=== PATIENT | female | born 1950 | race Caucasian/White ===

== ENCOUNTER → 2018-08-17 | Outpatient (CLI) | payer OTHER ==
[~2018-08-17] MED LIST: ALEVE220 MG PO; AMLODIPINE BESYL5 MG; ASPIR 8181 MG PO; CENTRUM SILVER1 EAC4 PO; CO Q-1030 MG PO; CORAL CALCIUM1 EACH PO; COREG25 MG PO; COZAAR 25 MG TA25 M1 PO; CRESTOR10 MG; ELIQUIS5 MG PO; HYDROCHLOROTHIA25 M2 PO; IMDUR 60 MG TAB60 M1 PO; IRON325 PO; KOMBIGLYZE XR1 EAC2; LASIX 20 MG TAB20 MG PO; LIPITOR 20 MG T20 M1 PO; LOPRESSOR50; LOSARTAN-HCTZ1 EAC1; MELATONIN3 MG PO; NEURONTIN 300300 M1 PO; NORVASC5 MG PO; OMEGA-31000 M1 PO; PLAVIX 75 MG TA75 M1; PLAVIX 75 MG TA75 M1 PO; RANEXA500 MG PO; VITAMIN B-12500 MCG PO; WELCHOL 625 MG625 M1 PO
[2018-08-17 13:18] VITALS: BP 142/62
[2018-08-17 14:45] VITALS: BP 137/64
--- NOTE | 2018-08-17 14:56 | NUR ---
ARRIVED AMBULATORY. MADE SELF COMFORTABLE IN RELCNER. IV STARTED WITHOUT DIFFICULTY. IRON INFUSION COMPLETED AND TOELRATED WELL. DENIES ADVERSE REACTION. DISCHARGE REVIEWED DENEIS QUESTIONS OR NEEDS.
== END ==
LOC: M.INFUS 13:00
DX: D50.9 Iron deficiency anemia, unspecified (principal); I48.91 Unspecified atrial fibrillation; I25.10 Atherosclerotic heart disease of native coronary artery without angina pectoris; I73.9 Peripheral vascular disease, unspecified; E11.42 Type 2 diabetes mellitus with diabetic polyneuropathy; K21.9 Gastro-esophageal reflux disease without esophagitis; I10 Essential (primary) hypertension; M19.90 Unspecified osteoarthritis, unspecified site; E66.9 Obesity, unspecified; E78.2 Mixed hyperlipidemia; Z95.0 Presence of cardiac pacemaker; Z79.01 Long term (current) use of anticoagulants

== ENCOUNTER → 2018-08-20 | Outpatient (CLI) | payer OTHER ==
[2018-08-20 13:08] VITALS: BP 138/78
--- NOTE | 2018-08-20 14:36 | NUR ---
DENIES ADVERSE REACTION TO PRIOR INFUSION OF SAME. INFUSION COMPLETED AND TOLERATED WELL.
== END ==
LOC: M.INFUS 02:23
DX: D50.9 Iron deficiency anemia, unspecified (principal); I25.10 Atherosclerotic heart disease of native coronary artery without angina pectoris; E11.42 Type 2 diabetes mellitus with diabetic polyneuropathy; I48.91 Unspecified atrial fibrillation; I10 Essential (primary) hypertension; E11.51 Type 2 diabetes mellitus with diabetic peripheral angiopathy without gangrene; K21.9 Gastro-esophageal reflux disease without esophagitis; M19.90 Unspecified osteoarthritis, unspecified site; E78.2 Mixed hyperlipidemia; E66.9 Obesity, unspecified; Z99.11 Dependence on respirator [ventilator] status; Z79.01 Long term (current) use of anticoagulants; Z95.5 Presence of coronary angioplasty implant and graft; Z90.710 Acquired absence of both cervix and uterus; Z87.891 Personal history of nicotine dependence

== ENCOUNTER → 2018-08-23 | Outpatient (CLI) | payer OTHER | LOC: M.INFUS 04:57 | DX: D50.9 Iron deficiency anemia, unspecified (principal); I25.10 Atherosclerotic heart disease of native coronary artery without angina pectoris; E11.42 Type 2 diabetes mellitus with diabetic polyneuropathy; I48.91 Unspecified atrial fibrillation; I10 Essential (primary) hypertension; K21.9 Gastro-esophageal reflux disease without esophagitis; E11.51 Type 2 diabetes mellitus with diabetic peripheral angiopathy without gangrene; M19.90 Unspecified osteoarthritis, unspecified site; E78.2 Mixed hyperlipidemia; E66.9 Obesity, unspecified; Z99.11 Dependence on respirator [ventilator] status; Z79.01 Long term (current) use of anticoagulants; Z95.5 Presence of coronary angioplasty implant and graft; Z90.710 Acquired absence of both cervix and uterus; Z87.891 Personal history of nicotine dependence ==

== ENCOUNTER → 2018-08-26 | Outpatient (CLI) | payer OTHER | LOC: M.INFUS 13:00 | DX: D50.9 Iron deficiency anemia, unspecified (principal) ==

== ENCOUNTER → 2018-08-29 | Outpatient (CLI) | payer OTHER ==
[2018-08-29 12:55] VITALS: BP 145/61
[2018-08-29 14:30] VITALS: BP 140/75
--- NOTE | 2018-08-29 15:00 | NUR ---
INFUSION COMPLETED AND TOELRATED WELL. REFUSED POST INFUSION LABS STATING ALREADY HAD THEM DONE AT DOCTOR' OFFICE EARLIER TODAY. DENIES NEEDS.
== END ==
LOC: M.INFUS 03:39
DX: D50.9 Iron deficiency anemia, unspecified (principal); I25.10 Atherosclerotic heart disease of native coronary artery without angina pectoris; E11.42 Type 2 diabetes mellitus with diabetic polyneuropathy; I48.91 Unspecified atrial fibrillation; I10 Essential (primary) hypertension; K21.9 Gastro-esophageal reflux disease without esophagitis; E11.51 Type 2 diabetes mellitus with diabetic peripheral angiopathy without gangrene; M19.90 Unspecified osteoarthritis, unspecified site; E78.2 Mixed hyperlipidemia; E66.9 Obesity, unspecified; Z99.11 Dependence on respirator [ventilator] status; Z95.5 Presence of coronary angioplasty implant and graft; Z90.710 Acquired absence of both cervix and uterus; Z87.891 Personal history of nicotine dependence

== ENCOUNTER 2018-08-30 09:59 | Inpatient (IN) | payer OTHER ==
[~2018-08-30] VITALS: Ht 170.2 cm; Wt 90.9 kg
--- NOTE | ~2018-08-30 | CON ---
[address] [address] CONSULTATION Name: NIKOLAI RED Room: [address] ADM IN M.R.#: [id number] Admission: 08/30/18 Attend Phys: Rubén Cavazos MD Discharge: Date of : 52 Report #: [id number] THIS REPORT FOR: //name// CC: Emi Jones DO Rubén Cavazos DATE OF SERVICE: 08/31/2018 CARDIOLOGY CONSULTATION HISTORY OF PRESENT ILLNESS: The patient is a 68-year-old white female, who I was asked to see in the hospital today because of her history of coronary artery disease. Unfortunately, not many of her old records are available. She has an extensive and complicated past medical history. She had a Biotronik pacemaker inserted in 12/2016 at [facility] by Dr. Nolan. According to the patient, the pacemaker is MRI compatible. She states at the time, she was short of breath and was noted to have a heart rate in the 50s. She continues to have the Biotronik pacemaker checked with a transmitter from home. She currently is followed by Dr. Gutierrez, a retail shift leader at [facility]. She apparently has a history of AFib and has had 2 radiofrequency ablations in the past at [facility]. She has been chronically anticoagulated with Eliquis. She also had a coronary stent placed at [facility] about 6 years ago. She is not very active at this time. She does have a history of anemia. She has undergone previous EGD and colonoscopy showing no significant bleeding. She was placed on iron supplements. Recently in cardiac rehab, she developed jaw pain with exertion. She apparently saw her retail shift leader, who is planning another heart catheterization. Recently, she notes occasional lightheadedness, but denied any shortness of breath. She saw her primary care physician earlier this week and had blood drawn. She is noted to be severely anemic and was told to come to the hospital yesterday and was admitted. She currently is receiving a blood transfusion. She denies any bleeding anywhere. She has had no recent fever or syncope. PAST MEDICAL HISTORY: Otherwise, she has had previous cholecystectomy and hysterectomy. She apparently has had 2 carotid endarterectomies on the right side of her neck at [facility]. She eventually apparently had a carotid stent placed at [facility]. CURRENT MEDICATIONS: Consist of the following list: She is on amlodipine 5 mg a day, Eliquis 5 mg twice a day, aspirin 81 mg a day, Lipitor 20 mg a day, carvedilol 25 mg twice a day, Plavix 75 mg a day, Welchol every day, iron supplements, Lasix daily, Neurontin, hydrochlorothiazide, Imdur 60 mg a day, losartan 25 mg a day, metoprolol, hydrochlorothiazide, Cozaar, and metoprolol tartrate. She has PREVIOUS [place] [address] CONSULTATION Name: NIKOLAI RED Room: [address] IN M.R.#: [id number] Admission: 08/30/18 Attend Phys: Rubén Cavazos MD Discharge: Date of : 52 Report #: [id number] FAMILY HISTORY: Her father had heart disease. SOCIAL HISTORY: She is . She and her live in [place]. She quit smoking 9 years ago. No alcohol abuse. REVIEW OF SYSTEMS: She has had no history of stroke, asthma, liver disease, kidney disease, cancer, or psychiatric illness. She does wear glasses. 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 No psychiatric illness. No chronic skin condition. PHYSICAL EXAMINATION: GENERAL: Revealed a middle-aged female lying in bed. She appeared in no distress. VITAL SIGNS: She has blood pressure of 130/60 and pulse 70. She is afebrile. HEENT: She is anicteric. Conjunctivae pale. Mucous members appear dry. NECK: Veins do not appear distended. CHEST: Clear to auscultation. CARDIAC: Regular rate and rhythm. ABDOMEN: Soft. EXTREMITIES: Had no edema. Dorsalis pedis pulse 2+ bilaterally. SKIN: Cool and dry. NEUROLOGIC: Nonfocal. Her ECG shows an atrial paced rhythm. Her workup so far in the hospital included a chest x-ray done in the Emergency Room yesterday that showed normal heart size and clear lung molina. LABORATORY DATA: Sodium 142, creatinine 1.0, glucose 121. Liver function studies were normal. TSH 2.4. Iron saturation 8%, ferritin 142. B12 of 490. White blood cell count 5.1, hemoglobin was initially 6.6, hematocrit 22.2, MCV 78. IMPRESSION AND RECOMMENDATIONS: 1. Anemia. No history of bleeding. Reason unclear. The patient is scheduled to see a business law teacher. Since the patient is having easily reproduced angina, I would not proceed with endoscopy at this time. 2. Coronary artery disease. Previous stent. The patient has infrequent angina. I would consider repeat cardiac catheterization once the patient is stable and felt to be a candidate for antiplatelet therapy. 3. Sick sinus syndrome. The patient is atrial paced with an MRI compatible pacemaker. 4. Hypertension. The patient is on a beta-dc and calcium dc and ELMIRA inhibitor. 5. Hyperlipidemia. The patient is on a statin drug. 6. Previous tobacco abuse. [facility] [address] [place] [address] CONSULTATION Name: NIKOLAI RED Room: [address] IN M.R.#: [id number] Admission: 08/30/18 Attend Phys: Rubén Cavazos MD Discharge: Date of : 52 Report #: [id number] 7. Evidence of previous optic stroke. 8. History of atrial fibrillation. The patient has had 2 previous ablations. Because of anemia, I would hold Eliquis at this time. 9. Previous carotid endarterectomy and carotid stent. 10. Diabetes. By: [id number] [id number] Michelle MD, FACC /nt
--- NOTE | ~2018-08-30 | CON ---
[address] [address] CONSULTATION Name: NIKOLAI RED Room: [address] IN M.R.#: [id number] Admission: 08/30/18 Attend Phys: Rubén Cavazos MD Discharge: Date of : 52 Report #: [id number] THIS REPORT FOR: //name// CC: SHANON CUETO DO Emi Cavazos DICTATED BY: Vivi Peter [facility] DATE OF SERVICE: 08/31/2018 Please note at the time of this dictation, the patient was seen and physically examined by myself. REASON FOR CONSULTATION: Symptomatic iron deficiency anemia. HISTORY OF PRESENT ILLNESS: This 68-year-old female who presented to her PCP's office for some blood work due to complaints of dizziness, increased fatigue and shortness of air with exertion. She was found to have iron deficiency anemia last month and she has received 5 IV iron infusions with her last one being on 08/29/2018 of this month. The patient did have a colonoscopy done back in 02/2018 of this year and that was normal. She did see Dr. Kwan in the office on 08/13/2018. However, because of her pacemaker, she is unable to have a small bowel capsule. She was being evaluated by Cardiology for her angina and she is needing a stent and she is on Eliquis due to her atrial fibrillation. However, with this anemia she has been off of that and Cardiology is waiting for GI evaluation, but clearance needs to be obtained and did not feel comfortable doing an EGD. The patient did have an EGD back in 2014 that was normal. The patient denies any nausea or vomiting or any change in her bowel habits. She goes daily, soft and formed with no evidence of any melena or bright red blood. She denies any abdominal pain. ALLERGIES: MUSCLE RELAXANTS, CODEINE, AND SUCCINYLCHOLINE. MEDICATIONS: From home include Plavix, Lopressor, Compazine, Crestor, Norvasc, Eliquis, aspirin, Lipitor, Coreg, CoQ10, Welchol, calcium, vitamin B12, iron, Lasix, Neurontin, hydrochlorothiazide, Imdur, Cozaar, melatonin, Centrum, omega 3, and Ranexa. PAST MEDICAL HISTORY: Hypertension, type 2 diabetes, pacemaker, cardiac stents. PAST SURGICAL HISTORY: Hysterectomy, pacemaker, 2 endarterectomies with stents and cardiac stents. FAMILY HISTORY: Mother, breast [place] [address] CONSULTATION Name: NIKOLAI RED Room: [address] IN [facility].#: [id number] Admission: 08/30/18 Attend Phys: Rubén Cavazos MD Discharge: Date of : 52 Report #: [id number] SOCIAL HISTORY: Denies any alcohol, tobacco or illegal drug use. REVIEW OF SYSTEMS: Twelve-point review of systems is essentially negative except what is mentioned in the HPI. PHYSICAL EXAMINATION: VITAL SIGNS: Temperature 36.5, pulse 71, respirations 16, blood pressure 138/58. HEART: Regular rate and rhythm. LUNGS: Clear. ABDOMEN: Soft, positive bowel sounds in all 4 quadrants with no masses or tenderness noted. LABORATORY DATA: Hemoglobin on admission was 6.8. She got 1 unit was up to 7.2 and she is back down to 6.8 this morning. In getting a second unit, white count is 5.1, platelets 199. GFR is 55. Her MCV is 78.7. Iron is 29, TIBC is 375 and percentage sat is 8, and B12 is 490. Chest x-ray clear. IMPRESSION: 1. Acute anemia. 2. History of symptomatic iron deficiency anemia with shortness of air and fatigue. 3. Anticoagulant therapy, Eliquis, Plavix and aspirin. Eliquis is currently on hold. 4. History of coronary artery disease, needing further stents and her shed boss is Dr. Pierce. 5. Family history of breast and ovarian cancer. PLAN: 1. Obtain Cardiology consult. 2. Clear liquids. 3. We will obtain records from Dr. Pierce's office. 4. We will keep hemoglobin greater than 7 and transfuse as needed. 5. Eliquis is on hold. Plavix and aspirin still on board. 6. Further recommendations to be made once the above have been noted. Thank you for allowing us to participate in this patient's care. Please do not hesitate to call with any questions in regard to this consult. By: [id number] Paniagua MD /nt
[~2018-08-30 09:59] MED LIST changes: -ALEVE220 MG PO; -ASPIR 8181 MG PO; -CENTRUM SILVER1 EAC4 PO; -CO Q-1030 MG PO; -CORAL CALCIUM1 EACH PO; -COREG25 MG PO; -COZAAR 25 MG TA25 M1 PO; -ELIQUIS5 MG PO; -HYDROCHLOROTHIA25 M2 PO; -IMDUR 60 MG TAB60 M1 PO; -IRON325 PO; -LASIX 20 MG TAB20 MG PO; -LIPITOR 20 MG T20 M1 PO; -MELATONIN3 MG PO; -NEURONTIN 300300 M1 PO; -NORVASC5 MG PO; -OMEGA-31000 M1 PO; -PLAVIX 75 MG TA75 M1 PO; -RANEXA500 MG PO; -VITAMIN B-12500 MCG PO; -WELCHOL 625 MG625 M1 PO
[2018-08-30 10:07] VITALS: BP 163/51
[2018-08-30] MEDS ORDERED: NORVASC5 MG PO (10:16)
[2018-08-30] MEDS ORDERED: ELIQUIS5 MG PO (10:16)
[2018-08-30] MEDS ORDERED: COREG25 MG PO (10:17)
[2018-08-30] MEDS ORDERED: PLAVIX 75 MG TA75 M1 PO (10:17)
[2018-08-30] MEDS ORDERED: ASPIR 8181 MG PO (10:17)
[2018-08-30] MEDS ORDERED: CO Q-1030 MG PO (10:17)
[2018-08-30] MEDS ORDERED: LIPITOR 20 MG T20 M1 PO (10:17)
[2018-08-30] MEDS ORDERED: CORAL CALCIUM1 EACH PO (10:18)
[2018-08-30] MEDS ORDERED: VITAMIN B-12500 MCG PO (10:18)
[2018-08-30] MEDS ORDERED: IRON325 PO (10:18)
[2018-08-30] MEDS ORDERED: WELCHOL 625 MG625 M1 PO (10:18)
[2018-08-30] MEDS ORDERED: HYDROCHLOROTHIA25 M2 PO (10:19)
[2018-08-30] MEDS ORDERED: LASIX 20 MG TAB20 MG PO (10:19)
[2018-08-30] MEDS ORDERED: NEURONTIN 300300 M1 PO (10:19)
[2018-08-30] MEDS ORDERED: IMDUR 60 MG TAB60 M1 PO (10:20)
[2018-08-30] MEDS ORDERED: COZAAR 25 MG TA25 M1 PO (10:20)
[2018-08-30] MEDS ORDERED: MELATONIN3 MG PO ×2 (10:20)
[2018-08-30] MEDS ORDERED: ALEVE220 MG PO (10:21)
[2018-08-30] MEDS ORDERED: CENTRUM SILVER1 EAC4 PO (10:21)
[2018-08-30] MEDS ORDERED: RANEXA500 MG PO (10:21)
[2018-08-30] MEDS ORDERED: OMEGA-31000 M1 PO (10:21)
[2018-08-30 12:28] LABS: ABSOLUTE BASOPHILS 0.1 thou/uL (0.0-0.2); ABSOLUTE LYMPHOCYTES 1.5 thou/uL (0.8-5.3); ABSOLUTE MONOCYTES 0.4 thou/uL (0.0-1.2); ABSOLUTE NEUTROPHILS 3.4 thou/uL (1.6-8.1); BASOPHILS 1.5 %; EOSINOPHILS 0.7 %; HEMATOCRIT 22.2 % (37.0-47.0); LYMPHOCYTES 27.4 %; MCH 22.7 pg (26.0-34.0); MCHC 29.5 g/dL (28.0-37.0); MCV 76.9 fL (80.0-100.0); MONOCYTES 7.4 %; NUCLEATED RBCS 0 /100WBC; PLATELET COUNT* 223 thou/uL (150-400); RBC 2.89 mil/uL (4.20-5.00); RDW-CV 28.6 % (10.5-14.5); WBC 5.4 thou/uL (4.0-11.0)
[2018-08-30 12:36] LABS: CALCIUM 9.7 mg/dL (8.5-10.1); HEMOGLOBIN 6.6 gm/dL (12.0-15.0)
[2018-08-30 12:47] LABS: ALBUMIN 3.5 g/dL (3.4-5.0); TOTAL BILIRUBIN 0.4 mg/dL (<0.1-1.0); TOTAL PROTEIN 6.8 g/dL (6.4-8.2)
[2018-08-30 13:07] LABS: PLATELET ESTIMATE ADEQUATE
[2018-08-30 13:08] LABS: HYPOCHROMASIA 2+; LARGE PLATELETS OCCASIONAL; POLYCHROMASIA 1+
[2018-08-30 13:09] LABS: ANISOCYTOSIS 1+; MACROCYTES 1+; MICROCYTES 1+; OVALOCYTES Occasional; POIKILOCYTOSIS 1+
--- NOTE | 2018-08-30 13:45 | NUR ---
IV STARTED IN INFUSION
[2018-08-30 13:48] VITALS: BP 125/50
[2018-08-30 14:05] VITALS: BP 120/41
--- NOTE | 2018-08-30 14:05 | NUR ---
ADMIT NOTE - PT ARRIVED VIA AND ABLE TO TRANSFER FROM TO BED. SL IV PRESENT. ORIENTED TO CALL LIGHT AND SURROUNDINGS. WILL CONTINUE TO MONITOR.
[2018-08-30 15:21] VITALS: BP 121/41; BP 121/42; BP 122/40; BP 124/38; BP 97/45
[2018-08-30 15:58] VITALS: BP 135/55
--- NOTE | 2018-08-30 17:05 | EKG ---
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1950 Requested By: Disha Price Order Number: [id number] MD: Ricki Daily Measurements Intervals [place] Rate: 78 P: [place]: 206 QRS: -32 QRSD: 107 T: 29 QT: 411 QTc: 469 Interpretive Statements Atrial-paced complexes Left anterior fascicular block Low voltage, precordial leads Delayed R-wave progression No previous ECG available for comparison Electronically Signed On 08-30-2018 17:05:11 CDT by Ricki Daily [email or web address] <ELECTRONICALLY SIGNED> By: Ricki Daily MD, [facility] 08/30/18 1705 1027 1027 Ricki Daily MD, [facility] /EPI
[2018-08-30 19:45] VITALS: BP 124/38
[2018-08-30 21:00] LABS: HEMATOCRIT 23.1 % (37.0-47.0); HEMOGLOBIN 7.2 gm/dL (12.0-15.0)
[2018-08-31] VITALS (7 sets, daily range): BP systolic 116–143; BP diastolic 48–59
[2018-08-31 04:41] LABS: ABSOLUTE EOSINOPHILS 0.1 thou/uL (0.0-0.7); ABSOLUTE LYMPHOCYTES 1.7 thou/uL (0.8-5.3); ABSOLUTE MONOCYTES 0.4 thou/uL (0.0-1.2); ABSOLUTE NEUTROPHILS 2.9 thou/uL (1.6-8.1); BASOPHILS 0.4 %; EOSINOPHILS 1.5 %; HEMATOCRIT 22.5 % (37.0-47.0); LYMPHOCYTES 32.5 %; MCH 23.7 pg (26.0-34.0); MCHC 30.1 g/dL (28.0-37.0); MCV 78.7 fL (80.0-100.0); MONOCYTES 8.5 %; MPV 8.6 fl. (7.2-11.1); NUCLEATED RBCS 0 /100WBC; PLATELET COUNT* 199 thou/uL (150-400); POLYS 57.1 %; RBC 2.86 mil/uL (4.20-5.00); RDW-CV 27.6 % (10.5-14.5); WBC 5.1 thou/uL (4.0-11.0)
[2018-08-31 05:00] LABS: CALCIUM 9.4 mg/dL (8.5-10.1); MAGNESIUM 1.7 mg/dL (1.8-2.4); POTASSIUM 3.9 mmol/L (3.5-5.1)
--- NOTE | 2018-08-31 05:20 | NUR ---
ASSUMED PATIENT CARE AT 1900. BLOOD COMPLETED AND REDRAW SHOWS HGC AT 7.2. ALERT AND ORIENTED TIMES FOUR. STATES THAT SHE FEELS MUCH BETTER AFTER RECEIVING TRANSFUSION. VERBALIZES AWARENESS OF CONSULTS THAT SHE WILL BE SEEING TODAY. PATIENT HANDED ME CARDS FROM HER PCP AND VARIOUS SPECIALTY DOCTORS. THESE WERE COPIED AND PLACED IN THE FRONT OF PATIENTS CHART. CREDIT CONTROLLER AND HOURLY ROUNDING COMPLETED DOCUMENTED.
[2018-08-31 05:56] LABS: HEMOGLOBIN 6.8 gm/dL (12.0-15.0)
--- NOTE | 2018-08-31 10:12 | NUR ---
ASSUMED PT CARE AT 0730, FULL ASSESMENT DONE CHARTED. PT A/O X4, SHE WAS HARD TO WAKE FIRST THING THIS AM. VSS, O2 SAT SLIGHLY LOW ON RA, ORDER RECIEVED FOR 1 UNIT PRBC'S, PT ON CONTINOUS PULSE OX AND 2L O2. NPO FOR CARDIOLOGY AND GI CONSULTS, PT UPDATED ON PLAN OF CARE. WILL COTNINUE TO MONITOR.
[2018-08-31 14:58] LABS: HEMATOCRIT 26.7 % (37.0-47.0); HEMOGLOBIN 8.4 gm/dL (12.0-15.0)
[2018-08-31 15:08] LABS: HEMOGLOBIN 6.7 g/dL (11.1-15.9)
--- NOTE | 2018-08-31 15:18 | NUR ---
INITIAL ASSESSMENT: Pt evaluated for d/c planning needs. Reviewed chart and spoke with nurse and pt. Pt is alert and oriented. Pt lives in house with spouse and was independent with ADL's prior to admission. Pt was independent with ADL's. Pt has cane, but does not normally use. 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. Pt has not had home health in the past. Pt plans on returning home on d/c from hospital. Pt was given AD/LW paperwork and was instructed to contact nurse to have document notarized if she decides to complete during hospitalization. Will remain available to assist as needed.
--- NOTE | 2018-08-31 19:05 | NUR ---
PT DOING WELL THIS EVENING. TOLERATING CLEAR LIQUID DIET, REVIEWED PTS PLAN OF CARE WITH PT. PT USES CALL LIGHT APPROPRIALTY FOR NEEDS.
[2018-09-01] VITALS (7 sets, daily range): BP systolic 109–156; BP diastolic 35–58
[2018-09-01 04:47] LABS: ABSOLUTE EOSINOPHILS 0.1 thou/uL (0.0-0.7); ABSOLUTE LYMPHOCYTES 1.5 thou/uL (0.8-5.3); ABSOLUTE MONOCYTES 0.4 thou/uL (0.0-1.2); ABSOLUTE NEUTROPHILS 3.3 thou/uL (1.6-8.1); BASOPHILS 0.5 %; EOSINOPHILS 1.8 %; HEMATOCRIT 28.6 % (37.0-47.0); HEMOGLOBIN 8.9 gm/dL (12.0-15.0); LYMPHOCYTES 27.6 %; MCH 24.9 pg (26.0-34.0); MCV 80.2 fL (80.0-100.0); MONOCYTES 8.3 %; MPV 8.8 fl. (7.2-11.1); NUCLEATED RBCS 0 /100WBC; PLATELET COUNT* 208 thou/uL (150-400); POLYS 61.8 %; RBC 3.56 mil/uL (4.20-5.00); RDW-CV 25.6 % (10.5-14.5); WBC 5.3 thou/uL (4.0-11.0)
[2018-09-01 04:59] LABS: CALCIUM 9.3 mg/dL (8.5-10.1); CREATININE 0.8 mg/dL (0.6-1.3); POTASSIUM 3.9 mmol/L (3.5-5.1)
--- NOTE | 2018-09-01 06:07 | NUR ---
ASSUMED PATIENT CARE AT 1900. PATIENT ALERT AND ORIENTED TIMES FOUR. MEDICAL RECORDS RECEIVED FROM PREVIOUS HOSPITALS AND ARE IN THE CHART. NO COMPLAINTS OF PAIN OR DISCOMFORT NOTED THROUGH THE NIGHT. HOURLY ROUNDING AND COUNTY COURT JUDGE COMPLETED CHARTED
[2018-09-01 08:32] LABS: MACROCYTES Occasional; MICROCYTES Occasional; PLATELET ESTIMATE ADEQUATE; POLYCHROMASIA 2+
[2018-09-01 08:33] LABS: ANISOCYTOSIS 2+; LARGE PLATELETS OCCASIONAL; POIKILOCYTOSIS 1+
--- NOTE | 2018-09-01 13:06 | NUR ---
ASSUMED CARE OF PATIENT THIS AM AT 0730. PATIENT IS ALERT AND ORIENTED X 4. SHE DENIES PAIN. PATIENT KEPT NPO FOR GI PROCEDURE. CONSENT SIGNED. PATIENT TAKEN TO PACU PER W/C THIS AM AND RETURNED. DIET AND MEDICATIONS RESUMED. TELE HAS SHOWN SR. IN TO ROUND AND DISCHARGE ORDERS WRITTEN. PATIENT IS TO FOLLOWUP WITH CARDIOLOGY.
--- NOTE | 2018-09-02 13:51 | CON ---
[address] [address] CONSULTATION Name: NIKOLAI RED Room: [address] IN M.R.#: [id number] Admission: 08/30/18 Attend Phys: Rubén Cavazos MD Discharge: 09/01/18 Date of : 52 Report #: [id number] THIS REPORT FOR: //name// CC: Emi Karen Cavazos DATE OF SERVICE: 08/31/2018 INPATIENT CONSULTATION REASON FOR CONSULTATION: Symptomatic anemia. SUBJECTIVE: The patient is a 68-year-old female who has been evaluated at the Emergency Room because of severe anemia, hemoglobin was at 5. The patient reported lightheadedness, fatigue with shortness of breath of exertion. The patient previously was found to have an iron deficiency and received 5 infusions of iron. She has been followed by GI clinic. Her last GI workup was in 02/2017. The patient denies any gum bleed, nosebleed, hematuria or black stool. The patient received transfusion today, her hemoglobin is 6.7. However, ferritin was 142 with a TIBC of 375, saturation was low at 8 with iron level 29, which was low. B12 was and folate within acceptable range. REVIEW OF SYSTEMS: All systems reviewed, it was negative except the above. PAST MEDICAL HISTORY: Coronary artery disease, status post stent in addition to pacemaker placement; dyslipidemia, hypertension, and neuropathy. MEDICATIONS: Per admission list. ALLERGIES: SHE IS ALLERGIC TO CODEINE, SUCCINYLCHOLINE. PAST SURGICAL HISTORY: Hysterectomy. FAMILY HISTORY: Positive for a hematologic malignancy, ovarian and breast cancer. SOCIAL HISTORY: She is an ex-smoker. She quit more than one year ago. No alcohol or drug abuse. PHYSICAL EXAMINATION: VITAL SIGNS: Today, temperature 36.8, pulse is 72, respiration is 16, blood pressure is 138/49, and SpO2 90% on 2 liters by physical examination. GENERAL: The patient was sitting in chair, was not in acute distress. LUNGS: Clear to auscultations bilaterally. HEART: Regular rate and rhythm. S1, S2 within normal limits. ABDOMEN: Soft, nontender, nondistended, bowel [place] [address] CONSULTATION Name: NIKOLAI RED Room: [address]#: [id number] Admission: 08/30/18 Attend Phys: Rubén Cavazos MD Discharge: 09/01/18 Date of : 52 Report #: [id number] EXTREMITIES: No edema, no cyanosis, no clubbing. LABORATORY DATA: Today, WBC 5.1, hemoglobin 6.8, MCV 78.7, platelets 199. Fibrinogen 293. Chemistry: Sodium is 142, potassium 3.9, creatinine is 1.0. Iron low at 29, TIBC 375, saturation low 8%, ferritin 142, bilirubin 0.4, AST 19, ALT 26, B12____, folate is 19.1, TSH 2.4. IMAGING: Chest x-ray showed no acute cardiopulmonary process, borderline heart size with a pacemaker. ASSESSMENT AND PLAN: A 68-year-old female who is being evaluated because of severe anemia. The patient required blood transfusion prior to this admission. The patient received iron infusion and that could explain her. Ferritin has been within normal range. However, her serum iron and saturation has been on the low range. The patient does not have patient does not have any renal insufficiency; however, agree with a GI workup after cardiac clearance at the same time, I would like to complete her anemia workup including peripheral blood smear, myeloma markers, hemolysis parameters. The patient has been already started on intravenous iron, which is I totally agree. We will monitor her hemoglobin to assess for transfusion. <ELECTRONICALLY SIGNED> By: Alicia Nguyễn MD 09/02/18 1351 1353 [id number] Nguyễn MD /nt
[2018-09-03 16:08] LABS: KAPPA FREE LIGHT CHAINS 18.2 mg/L (3.3-19.4); LAMBDA FREE LIGHT CHAINS 14.8 mg/L (5.7-26.3)
[2018-09-03 17:09] LABS: GLOBULIN TOTAL 2.5 g/dL (2.2-3.9); M-SPIKE Not Observed g/dL (Not Observed)
== END 2018-09-01 15:15 | disposition home or self-care (01) | DRG 812 ==
LOC: M.ERS 09:59 → M.TBA-ER 12:59 → M.2W 12:59
PROVIDERS: Internal Medicine; Personal Emergency Response Attendant; ADMIT Family Medicine
DX: D62 Acute posthemorrhagic anemia (principal); D68.59 Other primary thrombophilia; K31.819 Angiodysplasia of stomach and duodenum without bleeding; I10 Essential (primary) hypertension; I25.10 Atherosclerotic heart disease of native coronary artery without angina pectoris; I49.5 Sick sinus syndrome; E78.5 Hyperlipidemia, unspecified; I48.91 Unspecified atrial fibrillation; E11.40 Type 2 diabetes mellitus with diabetic neuropathy, unspecified; E11.51 Type 2 diabetes mellitus with diabetic peripheral angiopathy without gangrene; Z95.5 Presence of coronary angioplasty implant and graft; Z90.710 Acquired absence of both cervix and uterus; Z95.0 Presence of cardiac pacemaker; Z95.820 Peripheral vascular angioplasty status with implants and grafts; Z88.6 Allergy status to analgesic agent; Z88.8 Allergy status to other drugs, medicaments and biological substances; Z87.891 Personal history of nicotine dependence; Z82.49 Family history of ischemic heart disease and other diseases of the circulatory system; Z80.41 Family history of malignant neoplasm of ovary; Z79.01 Long term (current) use of anticoagulants; Z79.899 Other long term (current) drug therapy

== ENCOUNTER → 2018-09-17 | Outpatient (CLI) | payer OTHER ==
[~2018-09-17] MED LIST changes: +ALEVE220 MG PO; +ASPIR 8181 MG PO; +CENTRUM SILVER1 EAC4 PO; +CO Q-1030 MG PO; +CORAL CALCIUM1 EACH PO; +COREG25 MG PO; +COZAAR 25 MG TA25 M1 PO; +ELIQUIS5 MG PO; +HYDROCHLOROTHIA25 M2 PO; +IMDUR 60 MG TAB60 M1 PO; +IRON325 PO; +LASIX 20 MG TAB20 MG PO; +LIPITOR 20 MG T20 M1 PO; +MELATONIN3 MG PO; +NEURONTIN 300300 M1 PO; +NORVASC5 MG PO; +OMEGA-31000 M1 PO; +PLAVIX 75 MG TA75 M1 PO; +RANEXA500 MG PO; +VITAMIN B-12500 MCG PO; +WELCHOL 625 MG625 M1 PO
[2018-09-17 11:12] VITALS: BP 128/67
--- NOTE | 2018-09-17 12:51 | NUR ---
INFUSION COMPLETED AND TOLERATED WELL. DENIES NEEDS AT DISCHARGE
== END ==
LOC: M.INFUS 08:42
DX: D50.9 Iron deficiency anemia, unspecified (principal)

== ENCOUNTER → 2018-09-20 | Outpatient (CLI) | payer OTHER ==
[2018-09-20 10:55] VITALS: BP 144/60
[2018-09-20 12:25] VITALS: BP 122/89
--- NOTE | 2018-09-20 12:35 | NUR ---
ARRIVED AMBULATORY. MADE SELF COMFORTABLE IN RECLINER. IV STRTED USING ULTRASOUND WITH OUT DIFFICULTY. DENEIS ADVERSE REACTION TO MULTIPLE INFUSIONS OF SAME. INFUSION COMPLETED AND TOELRATED WELL. DENEIS QUESTIONS OR NEEDS AT DISCHARGE.
== END ==
LOC: M.INFUS 05:19
DX: D50.9 Iron deficiency anemia, unspecified (principal)

== ENCOUNTER → 2018-09-24 | Outpatient (CLI) | payer OTHER ==
[2018-09-24 10:15] VITALS: BP 140/76
--- NOTE | 2018-09-24 13:27 | NUR ---
ARRIVED AMBULATORY. MADE SELF COMFORTABLE IN RECLINER. DIFFICULT IV START. DENIES ADVERSE REACTION TO PRIOR INFUSIONS OF SAME. INFUSION COMPLETED AND TOLERATED WELL. DENEIS QUESTIONS OR NEEDS AT DISCHARGE.
== END ==
LOC: M.INFUS 09-23 08:00
DX: D50.9 Iron deficiency anemia, unspecified (principal)

== ENCOUNTER → 2018-09-27 | Outpatient (CLI) | payer OTHER ==
[2018-09-27 10:48] VITALS: BP 148/64
[2018-09-27 12:15] VITALS: BP 140/68
== END ==
LOC: M.INFUS 09-26 11:00
DX: D50.9 Iron deficiency anemia, unspecified (principal)

== ENCOUNTER → 2018-10-01 | Outpatient (CLI) | payer OTHER ==
[2018-10-01 10:50] VITALS: BP 126/62
[2018-10-01 13:15] VITALS: BP 128/64
== END ==
LOC: M.INFUS 09-29 11:00
DX: D50.9 Iron deficiency anemia, unspecified (principal)

== ENCOUNTER → 2018-11-07 | Outpatient (CLI) | payer OTHER | LOC: M.CT 12:57 | DX: K57.30 Diverticulosis of large intestine without perforation or abscess without bleeding (principal); R91.8 Other nonspecific abnormal finding of lung field; I48.91 Unspecified atrial fibrillation; E11.9 Type 2 diabetes mellitus without complications; K21.9 Gastro-esophageal reflux disease without esophagitis; I10 Essential (primary) hypertension; M19.90 Unspecified osteoarthritis, unspecified site; E55.9 Vitamin D deficiency, unspecified; G47.33 Obstructive sleep apnea (adult) (pediatric); E78.5 Hyperlipidemia, unspecified; E66.9 Obesity, unspecified; Z79.01 Long term (current) use of anticoagulants; Z68.39 Body mass index [BMI] 39.0-39.9, adult; Z79.899 Other long term (current) drug therapy ==